=== PATIENT | female | born 1980 | race Caucasian/White ===

== ENCOUNTER 2025-06-23 09:02 | Outpatient (CLI) | payer SELFPAY ==
--- NOTE | 2025-06-23 09:00 | MM_ITS ---
WS: [id number] SCREENING DIGITAL BREAST TOMOSYNTHESIS MAMMOGRAM WITH CAD HISTORY: SCREENING COMPARISON: None available. Bilateral CC and MLO with tomosynthesis and synthetic mammography submitted. Computer aided detection analyzed. Breast composition: The breasts are heterogeneously dense, which may obscure small masses. There are 2 asymmetries seen in the LEFT CC projection. These asymmetries are slightly spiculated and distorted. No definite corresponding finding on the lateral projection. No suspicious grouping of calcifications within either breast. MM/MM [facility] tomosynthesis [id number] IMPRESSION: BI-RADS: 0 - Incomplete: Need additional imaging evaluation FOLLOW UP: Need Additional Imaging LEFT breast: Spot compression views (CC and MLO). True ML. Ultrasound to follow if abnormality persists.
== END 2025-06-23 09:03 | disposition home or self-care (01) ==
LOC: MOBLMAM 09:08
PROVIDERS: PCP Nurse Practitioner Family; Visit Provider Nurse Practitioner Family
DX: Z12.31 Encounter for screening mammogram for malignant neoplasm of breast (principal); R92.333 Mammographic heterogeneous density, bilateral breasts; N64.89 Other specified disorders of breast
CPT/HCPCS: 77063; 77067